=== PATIENT | male | born 1960 | race African-American/Black ===

== ENCOUNTER 2019-09-06 21:03 | Emergency (ER) | payer MEDICAID ==
[~2019-09-06] VITALS: Ht 170.2 cm; Wt 89.8 kg
[2019-09-06 21:08] VITALS: BP_SYST 152
--- NOTE | 2019-09-06 21:52 | NUR ---
Placed in room 3 . Placed on patient monitor, blood pressure machine and pulse oximeter. To gown for exam. Side rails up.
--- NOTE | 2019-09-06 21:56 | NUR ---
Pt BIB BLS with c/o syncope. Pt A&Ox4. Pt states he "felt light headed and dizzy and passed out." Per EMS no LOC was noted. Pt states no nausea and vomiting. Pt states he hit his left elbow. Pt states pain 2/10 and explains it as "sore." Will continue to monitor.
--- NOTE | 2019-09-06 22:17 | NUR ---
ER at bedside examining patient.
[2019-09-06] MEDS ORDERED: NACL 0.9% 1,000 ML IV ONE (22:23)
--- NOTE | 2019-09-06 22:51 | NUR ---
# 20 gauge angiocath placed to L FOREARM. Use of asceptic technique. Opsite placed over site. Blood return noted. Flushed with 10 cc of normal saline. No evidence of infiltration noted. Patient tolerated well.
--- NOTE | 2019-09-06 22:52 | NUR ---
Lab at bedside obtaining blood work. Pt tolerated well.
--- NOTE | 2019-09-06 22:58 | NUR ---
radiology at bedside.
[2019-09-06 23:14] LABS: BASOPHILS # (AUTO) 0.1 K/uL (0.0-0.2); BASOPHILS % (AUTO) 0.9 % (0.0-2.0); EOSINOPHILS # (AUTO) 0.1 K/uL (0.0-0.4); EOSINOPHILS % (AUTO) 1.1 % (0.0-4.0); HEMATOCRIT 38.8 % (36-54); HEMOGLOBIN 12.9 g/dL (14.0-18.0); LYMPHOCYTES # (AUTO) 1.5 K/uL (1.0-5.5); LYMPHOCYTES % (AUTO) 19.2 % (20.5-51.5); MEAN CORPUSCULAR HEMOGLOBIN 28 pg (27-31); MEAN CORPUSCULAR HGB CONC 33 % (32-36); MEAN CORPUSCULAR VOLUME 85 fL (79.0-98.0); MONOCYTES # (AUTO) 0.6 K/uL (0.0-1.0); MONOCYTES % (AUTO) 7.4 % (1.7-9.3); NEUTROPHILS # (AUTO) 5.5 K/uL (1.8-7.7); NEUTROPHILS % (AUTO) 71.4 % (40.0-70.0); PLATELET COUNT (AUTO) 225 K/uL (130-430); RED BLOOD CELL COUNT(AUTO) 4.54 MIL/uL (4.2-6.2); RED CELL DISTRIBUTION WIDTH 14.9 % (9.0-15.0); WHITE BLOOD COUNT (AUTO) 7.7 K/uL (4.8-10.8)
[2019-09-06 23:17] LABS: ANION GAP 10 (5-15); CALCIUM 8.5 mg/dL (8.4-11.0); CHLORIDE 104 mmol/L (98-107); CREATININE 1.01 mg/dL (0.55-1.30); GLUCOSE 123 mg/dL (70-99); POTASSIUM 4.3 mmol/L (3.5-5.1); SODIUM SERUM 138 mmol/L (136-145); UREA NITROGEN, BLOOD 13 mg/dL (8-21)
[2019-09-06 23:20] LABS: GFR AFRICAN AMERICAN 98 mL/min (>90); PROTHROMBIN TIME 10.4 SECS (9.5-12.5)
[2019-09-06 23:21] LABS: ALANINE AMINOTRANSFERASE 30 U/L (12-78); ALBUMIN 3.6 g/dL (3.4-4.8); ASPARTATE AMINOTRANSFERASE 22 U/L (10-37); TOTAL BILIRUBIN 0.3 mg/dL (0.0-1.0)
[2019-09-06 23:23] LABS: ALCOHOL, BLOOD < 3 mg/dL (<10)
--- NOTE | 2019-09-07 00:02 | NUR ---
Patient resting quietly. No acute distress noted. Vital signs within normal range.
--- NOTE | 2019-09-07 01:10 | NUR ---
ER Dr. Dubon at bedside explaining results to patient.
[2019-09-07 02:21] VITALS: BP_SYST 145
--- NOTE | 2019-09-07 02:21 | NUR ---
Patient given written and verbal discharge instructions and verbalizes understanding. ER MD Dubon discussed with patient the results and treatment provided. Patient in stable condition. ID arm band removed. IV catheter removed intact and dressing applied, no active bleeding. No Rx given. Patient educated on pain management and to follow up with PMD. Pain Scale 0/10. Opportunity for questions provided and answered. Medication side effect fact sheet provided.
== END 2019-09-07 02:21 | disposition home or self-care (01) ==
LOC: SED 21:03
DX: R55 Syncope and collapse (principal); I10 Essential (primary) hypertension; F12.90 Cannabis use, unspecified, uncomplicated
CPT/HCPCS: 36415; 70450; 71045; 80053; 84484; 85025; 85610; 85730; 93005; 96360; 96361; 99284; G0482; J7030